=== PATIENT | male | born 1985 | race Caucasian/White ===

== ENCOUNTER 2017-10-10 11:13 | Emergency (ER) | payer BC ==
--- NOTE | 2017-10-10 12:03 | EDM.PDOC ---
ED HPI GENERAL MEDICAL PROBLEM - General Chief Complaint: Lower Extremity Injury/Pain Stated Complaint: L FOOT INJURY YESTERDAY Time Seen by Provider: 10/10/17 11:54 Source of Information: Reports: Patient History Limitations: Reports: No Limitations - History of Present Illness INITIAL COMMENTS - FREE TEXT/NARRATIVE: Patient is a 32-year-old male who presents to the ED complaining of left great toe pain. Patient states yesterday was working around a trailer with a scissors lift on it weighing approximately 8000 pounds. Uncle stepped onto the trailer off balancing it causing the trailer to fall on the patient's affected foot. He was wearing steel toes but the trailer edge landed on the foot just pass where the steel toe stopped. Patient states he had immediate pain but is able to continue to walk on it. Over the past 24 hours developed swelling and bruising to the affected foot. It is sensitive to touch. But he still able to put socks on and put on his boot with no difficulties. He is concerned it may be broken. Small abrasion noted to the dorsal aspect of the affected toe. Tetanus status is up-to-date. No pain elsewhere. Left 1-Hallux Pain Score (Numeric/FACES): 4 - Related Data Allergies Allergy/AdvReac Type Severity Reaction Status Date / Time amoxicillin Allergy Anaphylactic Verified 10/10/17 11:33 Shock azithromycin Allergy Rash Verified 10/10/17 11:33 cefixime [From Suprax] Allergy Airway Verified 10/10/17 11:33 Tightness Penicillins Allergy Anaphylactic Verified 10/10/17 11:33 Shock Home Meds: Home Meds . [No Known Home Meds] 10/10/17 [History] Past Medical History - Past Surgical History HEENT Surgical History: Reports: Adenoidectomy, Tonsillectomy Social & Family History - Tobacco Use Smoking Status *Q: Current Every Day Smoker Years of Tobacco use: 12 Packs/Tins Daily: 1 - Caffeine Use Caffeine Use: Reports: Soda - Recreational Drug Use Recreational Drug Use: No Review of Systems - Review of Systems Review Of Systems: ROS reveals no pertinent complaints other than HPI. ED EXAM, GENERAL - Physical Exam Exam: See Below Exam Limited By: No Limitations General Appearance: Alert, WD/WN, No Apparent Distress Ears: Hearing Grossly Normal Nose: Normal Inspection Throat/Mouth: Normal Voice, No Airway Compromise Neck: Normal Inspection, Supple Respiratory/Chest: No Respiratory Distress, No Accessory Muscle Use Cardiovascular: Normal Peripheral Pulses, Regular Rate, Rhythm Peripheral Pulses: 2+: Radial (L) Extremities: Other (Mild swelling and bruising noted to the left great toe. Bruising extends along the base of the second and third toe. No pain with palpation of the second and third toe. No pain really with palpation of the first through 5 metatarsals. No pain with palpation of the sole of the foot along the affected toe. No sensory deficits. Decreased range of motion secondary to pain.) Neurological: Alert, Oriented, Normal Cognition, No Motor/Sensory Deficits Psychiatric: Normal Affect, Normal Mood Skin Exam: Warm, Dry, Intact, Normal Color Course - Vital Signs Last Recorded V/S: Last Vital Signs Temp 97.8 F 10/10/17 11:28 Pulse 62 10/10/17 11:28 Resp 20 10/10/17 11:28 BP 133/95 H 10/10/17 11:28 Pulse Ox 100 10/10/17 11:28 - Orders/Labs/Meds Orders: Active Orders 24 hr Category Date Time Status Toes Great Toe Lt TA [CR] Stat Exams 10/10/17 11:56 Taken - Re-Assessments/Exams Free Text/Narrative Re-Assessment/Exam: Will obtain x-ray of the left great toe. 10/10/17 12:36 x-ray of the left great toe and other bony structures did not reveal any acute bony abnormalities. Final interpretation is pending. This was reviewed with Dr. Avni Sandoval. We'll discharge patient home with instructions as documented. Departure - Departure Time of Disposition: 12:37 Disposition: Home, Self-Care 01 Condition: Good Clinical Impression: Crushing injury of toe of left foot Qualifiers: Encounter type: initial encounter Qualified Code(s): S97.102A - Crushing injury of unspecified left toe(s), initial encounter - Discharge Information Instructions: Crush Injury, Fingers or Toes, [id number] Referrals: PCP,None [Primary Care Provider] - Forms: ED Department Discharge, ED Return to Work/School Form Additional Instructions: As discussed x-ray of the left great toe and surrounding bony structures did not reveal any acute bony abnormalities. Etiology of current complaint is a crush injury. Treatment is symptomatic care including ice to affected area 4-6 times daily, 30 mins in duration, do not apply ice directly on the skin. Elevate when able to reduce any swelling and pain. Tylenol and ibuprofen in alternating fashion for discomfort. Follow-up with your PCP to have re-x-rays if symptoms have not drastically improved in the next 7-10 days. Return to ED as needed for any new or worsening symptoms. Refrain any activities that cause worsening pain. - My Orders Last 24 Hours: My Active Orders 10/10/17 11:56 Toes Great Toe Lt TA [CR] Stat - Assessment/Plan Last 24 Hours: My Active Orders 10/10/17 11:56 Toes Great Toe Lt TA [CR] Stat
--- NOTE | 2017-10-12 10:16 | CR ---
Left first toe: Four views of the left first toe were obtained. Comparison: No prior study. Several calcifications are seen off the MTP joint of the first digit which are well corticated and felt to be old and incidental. Soft tissue swelling is identified. No acute fracture or other bony abnormality is appreciated. Impression: 1. Diffuse soft tissue swelling. No acute bony abnormality is identified on left first toe study. Diagnostic code #2
== END 2017-10-10 12:55 | disposition home or self-care (01) ==
LOC: JD.ED 11:13
DX: S97.112A Crushing injury of left great toe, initial encounter (principal); Z88.0 Allergy status to penicillin; Z88.1 Allergy status to other antibiotic agents; Z88.8 Allergy status to other drugs, medicaments and biological substances; F17.210 Nicotine dependence, cigarettes, uncomplicated; W20.8XXA Other cause of strike by thrown, projected or falling object, initial encounter
CPT/HCPCS: 73660-26-TA; 73660-TA; 99282; 99283

== ENCOUNTER 2025-05-25 07:59 | Day surgery (SDC) | payer OTHER ==
[~2025-05-25 07:59] MED LIST: Sodium Chloride 0.9% 10 ML Syringe FLUSH PRN; Sodium Chloride 0.9% 10 ML Syringe FLUSH SCH
[2025-05-25] MEDS ORDERED: Clindamycin Phosphate in D5W 900 MG in Premix Bag 1 BAG IV ONE (08:00)
[2025-05-25] MEDS: Lactated Ringers 1,000 ML IV SCH (09:00)
[2025-05-25] MEDS ORDERED: Ondansetron 4 MG/2 ML SDV IVPUSH PRN (09:24)
[2025-05-25] MEDS ORDERED: fentaNYL 100 MCG/2 ML SDV IVPUSH PRN (09:24)
[2025-05-25] MEDS: Clindamycin Phosphate in D5W 900 MG in Premix Bag 1 BAG IV ONE (09:30)
[2025-05-25] MEDS ORDERED: Midazolam 1 MG/ML 2 ML SDV ONE (09:31)
[2025-05-25] MEDS ORDERED: fentaNYL 250 MCG/5 ML SDV ONE (09:31)
[2025-05-25] MEDS ORDERED: Dexamethasone 4 MG/ML 5 ML MDV ONE (09:37)
[2025-05-25] MEDS ORDERED: Esmolol 100 MG/10 ML SDV ONE (09:37)
[2025-05-25] MEDS: EPINEPHrine 1 MG/ML SDV ONE (10:25)
[2025-05-25] MEDS ORDERED: Lactated Ringers 1,000 ML ONE (11:10)
== END 2025-05-25 13:24 | disposition home or self-care (01) ==
LOC: JD.SDS 07:59
PROVIDERS: ATTEND Surgery
DX: K42.9 Umbilical hernia without obstruction or gangrene (principal); F17.200 Nicotine dependence, unspecified, uncomplicated; Z88.1 Allergy status to other antibiotic agents; Z88.0 Allergy status to penicillin; Z79.899 Other long term (current) drug therapy
CPT/HCPCS: 49591; J0171; J0665; J0736; J1100; J1805; J2003; J2250; J3010; J7120; J7620; 00790; A9270-GY; J3490